=== PATIENT | male | born 1980 | race Caucasian/White ===

== ENCOUNTER → 2016-11-16 | Outpatient (CLI) | payer BC ==
[2015-11-05 11:30] VITALS: BP 133/91
[~2016-11-16] MED LIST: CYCL10TA2 PO; GABA-585 PO; GABA-586 PO; HYDR-2758 PO; IOHEXOL 180 MG/ML 10 ML VIAL. ONE; METH-38 PO; NAPR500T PO; methylPREDNISolone ACETATE 40 MG/ML VIAL. ONE; methylPREDNISolone ACETATE 80 MG/ML VIAL. ONE
== END | disposition home or self-care (01) ==
LOC: PNCL 14:05
PROVIDERS: ATTEND Anesthesiology
DX: M51.34 Other intervertebral disc degeneration, thoracic region (principal); Z87.39 Personal history of other diseases of the musculoskeletal system and connective tissue; Z72.89 Other problems related to lifestyle
CPT/HCPCS: 62321; J1030; J1040

== ENCOUNTER → 2016-12-06 | Outpatient (CLI) | payer BC ==
[2015-11-05 11:30] VITALS: BP 133/91
== END | disposition home or self-care (01) ==
LOC: PNCL 13:06
PROVIDERS: ATTEND Anesthesiology
DX: M51.14 Intervertebral disc disorders with radiculopathy, thoracic region (principal); F17.200 Nicotine dependence, unspecified, uncomplicated; Z87.39 Personal history of other diseases of the musculoskeletal system and connective tissue; Z72.89 Other problems related to lifestyle
CPT/HCPCS: 62321; J1030; J1040; 62323

== ENCOUNTER → 2017-01-20 | Outpatient (CLI) | payer BC ==
[2015-11-05 11:30] VITALS: BP 133/91
--- NOTE | 2017-01-20 09:53 | PAIN ---
DATE OF SERVICE: 01/20/2017 DIAGNOSES: 1. Thoracic radiculopathy with thoracic degenerative disk disease and thoracic herniated disk. 2. Lumbar degenerative disk disease. 3. Myofascial pain. HISTORY OF PRESENT ILLNESS: The patient is a 36-year-old male who returns for followup status post thoracic epidural steroid injection, last seen 12/06/2016. The patient reports he did very well, about a 75% improvement, until the last week or so, the pain began to return in the mid upper back, radiating slightly more to the right side. The patient reports no new motor or sensory deficits, but still significant pain, rated as a 9 on a scale of 10 as worst, 6 on average and a 3 on a scale of 10 at its least. The patient reports stabbing, constant, sharp in the mid back and then again occasionally radiating to the right side. The patient reports no new motor or sensory deficits, no new bowel or bladder incontinence. Reports it wakes him from sleep after 4-5 hours of sleeping, but if he takes pain medication, it does help him to sleep significantly. The patient reports he is having some numbness in his right arm, but only very rarely, usually when mowing the yard or holding an object for a longer period of time. The patient reports otherwise doing well. No new changes. PHYSICAL EXAMINATION: VITAL SIGNS: The patient's blood pressure 138/88, pulse 70, respirations 18, temperature 98.3 degrees Fahrenheit, weight is pounds. GENERAL: The patient is awake, alert, oriented, appropriate, very pleasant demeanor. HEENT: Head shows normocephalic, atraumatic. Extraocular movements are intact, symmetrical. Oral cavity, mucous membranes are moist and pink. NECK: Shows anterior throat supple. Neck shows full rotational motion of the cervical spine without difficulty or tenderness or restriction. CHEST: Shows normal on inspection. Breath sounds are clear bilaterally. HEART: Shows S1 and S2 clear. ABDOMEN: Soft, nontender, nondistended. BACK: The patient's back shows spine grossly midline, normal-appearing cervical lordotic curvature, thoracic kyphotic curvature, and lumbar lordotic curvature. Lumbar paraspinous muscle shows symmetrical on inspection with palpation, has some very mild tenderness in the mid distribution of paraspinous muscles. No tenderness over the spinous processes. Options were discussed with the patient and the patient's old chart was reviewed as his current medication regimen updated. Current review of systems updated today as well. We will proceed with a thoracic epidural steroid injection with fluoroscopic guidance. Risks were again discussed including, but not limited to bleeding, infection, possibility of epidural hematoma and subsequent neurologic compromise, dural puncture, headaches, spinal cord and/or nerve damage, side effects of steroid medication and poor results regarding pain control. The patient understands and wishes to proceed. The patient will return to clinic in approximately 2 weeks for followup; was counseled on return appointment, activity level and side effects to be aware of. DIAGNOSIS: Thoracic radiculopathy with thoracic degenerative disk disease, thoracic herniated disk. PROCEDURE: Thoracic epidural steroid injection in translaminar approach at the T7-T8 level using C-arm fluoroscopic guidance under sterile prep and drape using local anesthetic. Medication injected a total of 120 mg Depo-Medrol plus 5 mL of preservative-free normal saline and 2 mL Isovue for contrast. CONDITION AT DISCHARGE: Stable. The patient tolerated procedure well, had no complications. GAYLA MCCURDY MD DR: SHARLENE/reshma JOB#: [id number] / [id number]
== END | disposition home or self-care (01) ==
LOC: PNCL 08:31
PROVIDERS: ATTEND Anesthesiology
DX: M51.14 Intervertebral disc disorders with radiculopathy, thoracic region (principal); F17.200 Nicotine dependence, unspecified, uncomplicated; Z87.39 Personal history of other diseases of the musculoskeletal system and connective tissue; Z72.89 Other problems related to lifestyle
CPT/HCPCS: 62321; J1030; J1040

== ENCOUNTER → 2017-02-27 | Outpatient (CLI) | payer BC ==
[2015-11-05 11:30] VITALS: BP 133/91
--- NOTE | 2017-02-27 10:15 | PAIN ---
DATE OF SERVICE: 02/27/2017 DATE OF SERVICE: 02/27/2017 DIAGNOSES: Thoracic radiculopathy with thoracic degenerative disk disease, thoracic herniated disk. HISTORY OF PRESENT ILLNESS: The patient is a 36-year-old male who returns for followup status post thoracic epidural steroid injections, most recently on 01/20/2017. The patient did well with this, but only briefly, near 100% improvement for the first 3-4 weeks. The pain began to return mid back radiating to the right side, burning, stabbing, aching, tight, constant. It is becoming more severe. The patient reports it is an 8 on a scale of 10 at its worst, 4 on average and it is about 3 at its least and is a 3 today. The patient reports he is sleeping well at night, much better with lying down. Sitting, standing, walking, changing positions, all exacerbate the pain fairly significantly. Again, coming back with good results, initially with the injections, but they gently wear off and comes back within a month or so. The patient reports no new motor or sensory deficits, no new bowel or bladder incontinence or other complaints. PHYSICAL EXAMINATION: VITAL SIGNS: Today, the patient's blood pressure 137/80, pulse is 88, respirations 18, temperature 98.2 degrees Fahrenheit, height is 6 feet 2 inches, weighs 246 pounds. GENERAL: The patient is awake, alert, oriented, appropriate, very pleasant demeanor. HEENT: Head shows normocephalic, atraumatic. Extraocular movements are intact and symmetrical. Oral cavity shows mucous membranes moist and pink. Dentition is intact. NECK: Shows anterior throat supple. CHEST: Shows normal on inspection. Breath sounds are clear to auscultation bilaterally. HEART: Shows S1 and S2 clear. ABDOMEN: Obese, soft, nontender, nondistended. No palpable organomegaly is noted. BACK: Shows spine grossly midline. Normal appearing thoracic kyphosis, thoracic paraspinous musculature shows some moderate tenderness with diffuse palpation in the mid upper distribution in the paraspinous muscles, but no significant tenderness over the spinous processes. The patient shows good rotational motion both laterally as well as extension and flexion of the thoracic spine. Options were discussed with the patient and the patient's old chart was reviewed as his current medication regimen updated. Current review of systems updated today as well. We will proceed with a second in this series of thoracic epidural steroid injection with fluoroscopic guidance. Risks were again discussed including, but not limited to bleeding, infection, possibility of epidural hematoma, subsequent neurologic compromise, dural puncture, headaches, spinal cord and/or nerve damage, side effects of steroid medication and poor results regarding pain control. The patient understands and wishes to proceed. The patient will return to clinic in approximately 2 weeks for followup, was counseled on return appointment, activity level and side effects to be aware of. DIAGNOSIS: Thoracic radiculopathy, thoracic degenerative disk disease and thoracic herniated disk. PROCEDURE: Thoracic epidural steroid injection in translaminar approach T7-T8 level using C-arm fluoroscopic guidance under sterile prep and drape using local anesthetic. MEDICATION INJECTED: A total of 120 mg Depo-Medrol plus 5 mL of preservative-free normal saline and 2 mL of Isovue for contrast. CONDITION AT DISCHARGE: Stable. The patient tolerated procedure well, had no complications. The patient will return to clinic in approximately 2 weeks. We also discussed a repeat MRI. It has been about 2 years since he had one. With still significant pain returning in a radicular fashion in the thoracic distribution also, the patient is wishing for a surgical evaluation in case there is anything needs to be addressed surgically. We will make those arrangements for him. GAYLA MCCURDY MD DR: SHARLENE/reshma JOB#: [id number] / [id number]
== END | disposition home or self-care (01) ==
LOC: PNCL 08:27
PROVIDERS: ATTEND Anesthesiology
DX: M51.14 Intervertebral disc disorders with radiculopathy, thoracic region (principal); F17.200 Nicotine dependence, unspecified, uncomplicated; Z87.39 Personal history of other diseases of the musculoskeletal system and connective tissue; Z72.89 Other problems related to lifestyle
CPT/HCPCS: 62321; J1030; J1040

== ENCOUNTER → 2017-03-02 | Outpatient (CLI) | payer BC ==
[2015-11-05 11:30] VITALS: BP 133/91
[~2017-03-02] MED LIST changes: -IOHEXOL 180 MG/ML 10 ML VIAL. ONE; -methylPREDNISolone ACETATE 40 MG/ML VIAL. ONE; -methylPREDNISolone ACETATE 80 MG/ML VIAL. ONE
--- NOTE | 2017-03-02 14:54 | KCIC ---
INDICATION: Right arm pain and radiculopathy. TECHNIQUE: Sagittal T1, sagittal T2, sagittal STIR, axial T1, and axial T2 sequences are provided. Comparison is from January 08, 2015. 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 Craniocaudal extent is similar to prior. No additional cord signal abnormality is identified. There is no malalignment. There is no marrow edema. There is no worrisome marrow lesion. Degenerative findings are as follows: T2 T3 T4: There is a right paracentral protrusion without canal or foraminal compromise. T6-T7: There is a disc osteophyte complex with right paracentral herniation, effaces the ventral CSF column on the right. There is no canal stenosis. T7-T8: There is a disc osteophyte complex without canal or foraminal compromise. There is effacement of the ventral CSF column. There is a T2 hyperintense lesion in the posterior segment of the right hepatic lobe measuring 6 mm. This is stable, statistically most likely either a small cyst or hemangioma. IMPRESSION: 1. 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 2. Degenerative changes are greatest at T6-T7 and T7-T8. Electronically signed by: Carlos Mcclure MD (03/02/2017 2:51 PM) [facility]
== END | disposition home or self-care (01) ==
LOC: KCIC MRI 13:40
PROVIDERS: ATTEND Anesthesiology
DX: M54.14 Radiculopathy, thoracic region (principal); M47.894 Other spondylosis, thoracic region; G95.0 Syringomyelia and syringobulbia; M79.601 Pain in right arm
CPT/HCPCS: 72146

== ENCOUNTER → 2017-04-05 | Outpatient (CLI) | payer BC ==
[2015-11-05 11:30] VITALS: BP 133/91
--- NOTE | 2017-04-05 22:46 | PAIN ---
DATE OF SERVICE: 04/05/2017 PROGRESS NOTE FOR PAIN CLINIC DIAGNOSES: 1. Thoracic radiculopathy with thoracic degenerative disk disease and thoracic herniated disk. 2. Lumbar degenerative disk disease. HISTORY OF PRESENT ILLNESS: The patient is a 36-year-old male who returns for followup status post thoracic epidural steroid injections x 3. The patient reports that he had done fairly well initially about 100% for the first 3-4 weeks then the pain returned after that time period, fairly significantly in the mid upper back radiating mostly to the right side greater than the left, but present bilaterally in the upper mid back. The patient reports the shots are becoming less effective with time. He has also been taking hydrocodone, which is not helping very much anymore and also his gabapentin has not been changed in doses at 300 mg t.i.d., but it has been this way for several months. The patient reports his pain is increasing, it is constant becoming more aching and tight in the mid back, worse with activity, standing, walking, changing positions, awakens him from sleep occasionally, but every 4 to 5 hours he has to reposition or get out of bed to change positions to get back to sleep and is usually able to do so. The patient reports the pain as 7 on a scale of 10 at its worst, 5 at the average and a 3 at its least and is a 3 today. The patient reports no new motor or sensory deficits, no new bowel or bladder incontinence, but still significant pain as noted. PHYSICAL EXAMINATION: VITAL SIGNS: The patient's blood pressure is 137/97, pulse is 66, respirations 20, temperature 98.0 degrees Fahrenheit and weight is 244 pounds. GENERAL: The patient is awake, alert, oriented, appropriate and very pleasant demeanor. HEENT: Head shows normocephalic and atraumatic. Extraocular movements are intact, symmetrical. Oral cavity: Mucous membranes are moist and pink. Dentition is intact. NECK: Shows anterior throat supple without palpable lymphadenopathy noted. Swallow reflex is symmetrical. CHEST: Shows normal with inspection. Breath sounds are clear to auscultation bilaterally. HEART: Shows S1 and S2 clear. No murmurs are auscultated. ABDOMEN: Soft, nontender and nondistended. No palpable organomegaly is noted. No rebound or guarding demonstrated. MUSCULOSKELETAL: Back shows spine grossly in the midline. Thoracic kyphotic curvature is normal in appearance with palpation shows significant tenderness in the paraspinous musculature bilaterally diffusely in the mid upper paraspinous distribution. No tenderness specifically over the spinous processes, but no radiation of the pain as well. The patient shows good rotational motion both laterally as well as extension and flexion without significant difficulty. Lower back shows some mild tenderness with palpation in the lumbar paraspinous muscles, but only diffusely and only very minimally. 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 Lower extremities show deep tendon reflexes 2+ in the patellar tendons and 1+ tendo calcaneus tendons. Motor exam is strong with 5/5 dorsiflexion, extension, quadriceps and hamstring flexion and symmetrical. Peripheral pulses are 1+ posterior tibial and 2+ in the radial distribution. No peripheral edema is noted in any of the extremities. Options were discussed with the patient and the patient's old chart was reviewed as is his current medication regimen and updated. Current review of systems was updated today as well and we will hold on any further injections as he has had 3 in the last 6 months, will be eligible for further injections in mid April of this year. The patient was given a Medrol Dosepak with instructions on side effects to be aware of discussed and will return to the clinic in approximately 3 weeks for potential thoracic epidural steroid injection at that time. Also discussed the patient's regimen with his gabapentin and this will probably be better served if this was increased to at least 400 if not 600 mg t.i.d. as tolerated. The patient will discuss this with his primary care physician as well. Also hydrocodone is not working well. He may be developing some physiologic tolerance, may be best suited to change this to a different molecule as well. Again, the patient will discuss this with his primary care physician and followup as scheduled. GAYLA MCCURDY MD DR: SHARLENE/reshma JOB#: [id number] / [id number] DERICK Cardenas APRN
== END | disposition home or self-care (01) ==
LOC: PNCL 10:40
PROVIDERS: ATTEND Anesthesiology
DX: M51.14 Intervertebral disc disorders with radiculopathy, thoracic region (principal)
CPT/HCPCS: 99212

== ENCOUNTER → 2017-06-30 | Day surgery (SDC) | payer BC ==
[~2017-06-30] MED LIST changes: -CYCL10TA2 PO; -GABA-585 PO; -GABA-586 PO; -HYDR-2758 PO; -METH-38 PO; -NAPR500T PO; +PROPOFOL 40 ML IV
[2017-06-30] MEDS: IV RINGERS,LACTATED 1000ML 1,000 ML IV ×2 (09:12)
== END | disposition home or self-care (01) ==
LOC: SURG 08:42
DX: K64.0 First degree hemorrhoids (principal); M19.90 Unspecified osteoarthritis, unspecified site; Z80.0 Family history of malignant neoplasm of digestive organs; F17.200 Nicotine dependence, unspecified, uncomplicated; Z72.89 Other problems related to lifestyle; Z87.39 Personal history of other diseases of the musculoskeletal system and connective tissue
CPT/HCPCS: 45378; J2704

== ENCOUNTER → 2018-01-19 | Outpatient (CLI) | payer BC ==
[2017-06-30 10:23] VITALS: BP 135/94
[~2018-01-19] MED LIST changes: +CYCL10TA2 PO; +GABA-585 PO; +GABA-586 PO; +HYDR-2758 PO; +IOHEXOL 180 MG/ML 10 ML VIAL. ONE; +LIDOCAINE 2% PF 2ML VIAL. ONE; +METH-38 PO; +NAPR-683 PO; -PROPOFOL 40 ML IV; +methylPREDNISolone ACETATE 40 MG/ML VIAL. ONE; +methylPREDNISolone ACETATE 80 MG/ML VIAL. ONE
--- NOTE | 2018-01-20 03:38 | PAIN ---
DATE OF SERVICE: 01/19/2018 PROGRESS NOTE FOR PAIN CLINIC DIAGNOSES: 1. Lumbar radiculopathy with lumbar degenerative disk disease and lumbar low back pain. 2. Thoracic radiculopathy with thoracic degenerative disk disease and thoracic herniated disk. HISTORY OF PRESENT ILLNESS: The patient is a 37-year-old male who returns for followup status post previous thoracic epidural steroid injections as well as lumbar epidural steroid injections in the past, most recently seen in February 2017. The patient did very well with near 100% improvement with each of the injections over time. The patient reports the pain has been returning now for several weeks in the low back, mainly in the left side radiating to the posterior lateral gluteus and lateral thigh, occasionally to the lateral anterior leg on the left only. The patient reports it is mostly in the low back, however, and is most problematic with changing positions, standing for prolonged periods or walking greater than about 20 minutes. The patient reports no new motor or sensory deficits, no new bowel or bladder incontinence or other complaints. The patient rates his pain as 8 on a scale of 10 at its worst, 4 on average, 2 at its least and is a 2 today. The patient reports he is sleeping well at night. It does not bother him when he is off his feet, much worse with changing positions or extended standing, walking is noted, better with sitting or lying down. PHYSICAL EXAMINATION: VITAL SIGNS: The patient's blood pressure is 133/87, pulse 57, respirations 18, temperature 98.1 degrees Fahrenheit, height 6 feet 2 inches, weight is 236 pounds. GENERAL: The patient is awake, alert, oriented, appropriate, very pleasant demeanor. HEENT: Head shows normocephalic, atraumatic. Extraocular movements intact and symmetrical. Oral cavity: Mucous membranes moist and pink. Dentition is intact. NECK: Shows anterior throat supple without palpable lymphadenopathy noted. Swallow reflex symmetrical. CHEST: Shows normal with inspection. Breath sounds clear to auscultation bilaterally. HEART: Shows S1, S2 clear. No murmurs auscultated. ABDOMEN: Soft, nontender, nondistended. No palpable organomegaly. No rebound or guarding demonstrated. BACK: Shows spine grossly in the midline. Normal appearing thoracic kyphosis and lumbar lordotic curvature. Lumbar paraspinous muscle shows symmetrical on inspection, with palpation shows some moderate tenderness only diffusely in the low lumbar distribution, more on the left than the right, but only moderately without hypertrophy, atrophy or asymmetry. The patient has good rotational motion of the lumbar spine, both laterally as well as extension and flexion without significant tenderness. EXTREMITIES: Lower extremities show deep tendon reflexes at 2+ in the patellar, 1+ tendo-calcaneus tendons. Motor exam is strong with 5/5 dorsiflexion, extension, quadriceps and hamstring flexion equal. Peripheral pulses are 1+ posterior tibia. No peripheral edema is noted. Options were discussed with the patient. The patient's old chart was reviewed as his current medication regimen updated and current review of systems updated today as well. We will proceed with a lumbar epidural steroid injection today with fluoroscopic guidance. Risks were again discussed including, but not limited to, bleeding, infection, possibility of epidural hematoma, subsequent neurologic compromise, dural puncture, headaches, spinal cord and/or nerve damage, side effects of steroid medication and poor results regarding pain control. The patient understands and wished to proceed. The patient will return to clinic in approximately 2 weeks for followup, was counseled on return appointment, activity level and side effects to be aware of. DIAGNOSES: Lumbar radiculopathy with lumbar degenerative disk disease, lumbar low back pain. PROCEDURE: Lumbar epidural steroid injection, translaminar approach L4-L5 level using C-arm fluoroscopic guidance under sterile prep and drape using local anesthetic. MEDICATION INJECTED: A total of 120 mg Depo-Medrol plus 10 mL of preservative-free normal saline and 2 mL of Isovue for contrast. CONDITION AT DISCHARGE: Stable. The patient tolerated the procedure well, had no complications. GAYLA MCCURDY MD DR: SHARLENE/reshma JOB#: [id number] / [id number]
== END | disposition home or self-care (01) ==
LOC: PNCL 08:06
PROVIDERS: ATTEND Anesthesiology
DX: M51.16 Intervertebral disc disorders with radiculopathy, lumbar region (principal); M51.14 Intervertebral disc disorders with radiculopathy, thoracic region
CPT/HCPCS: 62323; J1030; J1040; J2001; Q9965

== ENCOUNTER 2020-06-24 16:14 | Emergency (ER) | payer BC ==
[~2020-06-24] VITALS: Ht 188 cm; Wt 113.6 kg
[~2020-06-24 16:14] MED LIST changes: -GABA-586 PO; +GABA300C18 PO; -HYDR-2758 PO; +HYDR-2761 PO; -IOHEXOL 180 MG/ML 10 ML VIAL. ONE; -LIDOCAINE 2% PF 2ML VIAL. ONE; -methylPREDNISolone ACETATE 40 MG/ML VIAL. ONE; -methylPREDNISolone ACETATE 80 MG/ML VIAL. ONE
[2020-06-24 16:43] VITALS: BP 145/89
[2020-06-24] MEDS ORDERED: LIDOCAINE 1% PF 2 ML VIAL. INJ ONE (17:15)
--- NOTE | 2020-06-24 17:20 | RAD ---
XR NASAL BONES 3+ VIEWS 06/24/2020 5:14 PM INDICATION: Nose injury COMPARISON: None available. TECHNIQUE: 3 views of the nasal bones are provided. FINDINGS/ IMPRESSION: 1. No acute fracture is identified. Lateral masses of C1 articulate appropriately with the C2 vertebr al body. Osseous orbits are intact. Nasal septum is predominantly midline. 2. Paranasal sinuses are well aerated. Electronically signed by: Angelita Dove MD (06/24/2020 5:18 PM) [facility]
--- NOTE | 2020-06-24 17:30 | ED.ADGEN ---
Past Medical History Past Medical History: No Pertinent History, Other Additional Past Medical Histor: chronic back Past Surgical History: Other Additional Past Surgical Histo: hernia repair, left knee surgery Smoking Status: Former Smoker Alcohol Use: Occasionally Drug Use: None General Adult EDM: Chief Complaint: FACE PROBLEM HPI: HPI: Patient is a 39 year old male, accompanied by his father, who presents emergency department with complaints of nose pain with a laceration to the lateral left nare after accidentally being hit in the head with a ramp. Patient denies any loss of consciousness, headache, neck pain, nausea, vomiting, or vision changes. He is unsure when his last tetanus shot was. Patient denies any blood inside of his nose, he reports that the blood is only on the outside of his nose. He currently rates pain 3 out of 10 on the pain scale, he denies any alleviating factors. Review of Systems: Review of Systems: Complete ROS is negative unless otherwise noted in HPI. Current Medications: Current Medications Medications (Trade) Dose Ordered Sig/Speedy Start Time Stop Time Status Last Admin Dose Admin Diphtheria/ Tetanus/Acell Pertussis (ADACEL TDap SYRINGE) 0.5 ml ONCE ONCE 06/24/20 18:30 06/24/20 18:31 DC 06/24/20 18:33 0.5 ML Lidocaine HCl (Xylocaine-Mpf 1% 2ml Vial) 2 ml 1X ONCE 06/24/20 17:15 06/24/20 17:16 DC 06/24/20 17:22 2 ML Allergies: Allergies: Allergies Coded Allergies Type Severity Reaction Last Updated Verified No Known Drug Allergies 06/30/17 No Physical Exam: PE: See Above Constitutional: Well developed, well nourished, no acute distress, non-toxic appearance. [] HENT: Normocephalic, bilateral external ears normal, internal nose normal; 1.5 cm laceration to lateral left nare, no visible foreign body, bleeding controlled with pressure held by patient.. [] Eyes: PERRLA, EOMI, conjunctiva normal, no discharge. [] Neck: Normal range of motion, no stridor. [] Cardiovascular:Heart rate regular rhythm Lungs & Thorax: Respirations even and unlabored, no retractions, no respiratory distress Abdomen: soft, no tenderness Skin: Warm, dry, no rash; see HENT assessment Extremities: No cyanosis, ROM intact, no edema. [] Neurologic: Alert and oriented X 3, no focal deficits noted. [] Psychologic: Affect normal, judgement normal, mood normal. [] Current Patient Data: Vital Signs: Vital Signs Date Time Temp Pulse Resp B/P (MAP) Pulse Ox O2 Delivery O2 Flow Rate FiO2 06/24/20 16:43 97.4 84 16 145/89 (107) 98 Room Air 97.4 EKG: EKG: [] Heart Score: Risk Factors: Risk Factors: DM, Current or recent (<one month) smoker, HTN, HLP, family history of CAD, obesity. Risk Scores: Score 0 - 3: 2.5% MACE over next 6 weeks - Discharge Home Score 4 - 6: 20.3% MACE over next 6 weeks - Admit for Clinical Observation Score 7 - 10: 72.7% MACE over next 6 weeks - Early Invasive Strategies Radiology/Procedures: Radiology/Procedures: PROCEDURE: NASAL BONES 3+V XR NASAL BONES 3+ VIEWS 06/24/2020 5:14 PM INDICATION: Nose injury COMPARISON: None available. TECHNIQUE: 3 views of the nasal bones are provided. FINDINGS/ IMPRESSION: 1. No acute fracture is identified. Lateral masses of C1 articulate appropriately with the C2 vertebral body. Osseous orbits are intact. Nasal septum is predominantly midline. 2. Paranasal sinuses are well aerated. Laceration Repair by me: Anesthesia: 1% lidocaine locally Location: Lateral left nare Tendon/Joint/Nerves: No injury Foreign body: None detected after copious irrigation and exploration with NS and chlorhexidine Technique: 2 simple Interrupted Sutures with 6-0 Ethilon Complexity: No subcutaneous sutures/mucosal repair/edge excision Post Closure Length: 1.5 cm Patient's bleeding was easily controlled in the department and there is no indication of anemia. No evidence of compartment syndrome, neurologic injury, vascular injury, open joint, tendon laceration, or foreign body. Patient is appropriate for outpatient follow up. Scar minimazation instructions given. [] [] Course & Med Decision Making: Course & Med Decision Making Pertinent Labs and Imaging studies reviewed. (See chart for details) [] Dragon Disclaimer: Dragon Disclaimer: This electronic medical record was generated, in whole or in part, using a voice recognition dictation system. Departure Departure Impression: Primary Impression: Laceration of nose without complication Additional Impression: Need for Tdap vaccination Disposition: 01 DC HOME SELF CARE/HOMELESS Condition: STABLE Referrals: LEONELA DAVIS MD (PCP) Patient Instructions: Facial Laceration, [id number], VIS, Tetanus, Diphtheria (Td); Tetanus, Diphtheria, Pertussis (Tdap) - [facility] Additional Instructions: Keep the area clean and dry. You may take Tylenol or ibuprofen as needed for pain. Follow-up with your primary care doctor, or return to the emergency room in 5-7 days to have the sutures removed, sooner if you develop signs of infection including: redness, warmth, drainage, or a fever. Problem Qualifiers Primary Impression: Laceration of nose without complication Encounter type: initial encounter Qualified Codes: S01.21XA - Laceration without foreign body of nose, initial encounter GABRIELLA URENA APRN Jun 24, 2020 17:30
[2020-06-24] MEDS ORDERED: DIPH,PERTUSS(ACELL),TET VAC/PF 0.5 ML SYRINGE. VAX IM ONE (18:30)
== END 2020-06-24 18:32 | disposition home or self-care (01) ==
LOC: ER 16:14
DX: S01.21XA Laceration without foreign body of nose, initial encounter (principal); J34.89 Other specified disorders of nose and nasal sinuses; Z87.891 Personal history of nicotine dependence; Z98.890 Other specified postprocedural states; W22.8XXA Striking against or struck by other objects, initial encounter; Y93.89 Activity, other specified; Y92.89 Other specified places as the place of occurrence of the external cause; Y99.8 Other external cause status
CPT/HCPCS: 12011; 70160; 90471; 90715; 99283; J3490